=== PATIENT | female | born 1995 | race Asian ===

== ENCOUNTER 2018-07-16 14:00 | Observation (INO) | payer SELFPAY ==
[~2018-07-16] VITALS: Ht 160 cm; Wt 90.7 kg
== END 2018-07-16 16:30 | disposition home or self-care (01) ==
LOC: SPU 14:00 → UNDOADMIN 16:01 → EDSTATUS 16:08
PROVIDERS: ADMIT Obstetrics & Gynecology; ATTEND Obstetrics & Gynecology
DX: O42.919 Preterm premature rupture of membranes, unspecified as to length of time between rupture and onset of labor, unspecified trimester (principal); Z3A.00 Weeks of gestation of pregnancy not specified
CPT/HCPCS: G0378

== ENCOUNTER 2018-07-21 14:40 | Inpatient (IN) | payer SELFPAY ==
[~2018-07-21] VITALS: Ht 160 cm; Wt 92.1 kg
[2018-07-21] MEDS ORDERED: ROPIVACAINE 40 MG/20 ML AMP EP ONE (15:32)
[2018-07-21] MEDS ORDERED: LR 1,000 ML IV ONE (15:39)
[2018-07-21] MEDS ORDERED: DINOPROSTONE 10 MG SUPP VG ONE (15:45)
[2018-07-21] MEDS ORDERED: NALBUPHINE HCL 10 MG/ML AMP IVP PRN (15:45)
[2018-07-21] MEDS ORDERED: TERBUTALINE SULFATE 1 MG/ML VIAL SUBCUT ONE (15:45)
[2018-07-21 15:58] LABS: BASOPHILS % (AUTO) 0.1 % (0.0-2.0); EOSINOPHILS # (AUTO) 0.1 K/uL (0.0-0.4); EOSINOPHILS % (AUTO) 0.7 % (0.0-4.0); HEMATOCRIT 36.4 % (36-48); HEMOGLOBIN 11.8 g/dL (12.0-16.0); LYMPHOCYTES # (AUTO) 2.1 K/uL (1.0-5.5); MEAN CORPUSCULAR HEMOGLOBIN 31 pg (27-31); MEAN CORPUSCULAR HGB CONC 33 % (32-36); MEAN CORPUSCULAR VOLUME 96 fL (79.0-98.0); MONOCYTES # (AUTO) 0.7 K/uL (0.0-1.0); MONOCYTES % (AUTO) 8.3 % (1.7-9.3); NEUTROPHILS # (AUTO) 5.4 K/uL (1.8-7.7); NEUTROPHILS % (AUTO) 65.9 % (40.0-70.0); PLATELET COUNT (AUTO) 166 K/uL (130-430); RED BLOOD CELL COUNT(AUTO) 3.78 MIL/uL (4.2-6.2); RED CELL DISTRIBUTION WIDTH 15.4 % (9.0-15.0); WHITE BLOOD COUNT (AUTO) 8.3 K/uL (4.8-10.8)
[2018-07-21] MEDS: LR 1,000 ML IV SCH ×2 (16:36→22:52)
[2018-07-21 17:20] VITALS: BP_SYST 124
[2018-07-22] MEDS: LR 1,000 ML IV SCH ×2 (06:09→13:00)
[2018-07-22] MEDS ORDERED: OXYTOCIN/0.9 % SODIUM CHLORIDE 1,000 ML IV SCH (07:46)
[2018-07-22] MEDS ORDERED: FENT2mCg/mL-ROPIVA0.2%/NS EPID 150 ML EP SCH (12:09)
[2018-07-22] MEDS ORDERED: ROPIVACAINE 0.2% 100 ML ONE (12:09)
[2018-07-22] MEDS ORDERED: fentaNYL CITRATE/PF 100 MCG/2 ML AMP ONE ×3 (12:09→18:15)
[2018-07-22] MEDS ORDERED: fentaNYL CITRATE/PF 100 MCG/2 ML AMP EP ONE (14:38)
[2018-07-22] MEDS ORDERED: CEFAZOLIN 2 GM IVPB PREMIX 50 ML IV ONE (16:15)
[2018-07-22] MEDS ORDERED: NALOXONE HCL 1 MG in NACL 0.9% 1,000 ML IV PRN ×4 (16:37)
[2018-07-22] MEDS ORDERED: LR 500 ML IV ONE (16:37)
[2018-07-22] MEDS ORDERED: LR 1,000 ML IV SCH ×2 (16:37→18:08)
[2018-07-22] MEDS ORDERED: NALOXONE HCL 0.4 MG/ML AMP (NARCAN) IVP PRN ×3 (16:45)
[2018-07-22] MEDS ORDERED: DIPHENHYDRAMINE HCL 50 MG CAPSULE PO PRN (16:45)
[2018-07-22] MEDS ORDERED: DIPHENHYDRAMINE INJ 50 MG/ML VIAL IVP PRN (16:45)
[2018-07-22] MEDS ORDERED: MEPERIDINE HCL/PF 25 MG/ML DISP.SYRIN IVP PRN ×2 (16:45)
[2018-07-22] MEDS ORDERED: ONDANSETRON HCL 4 MG/2 ML VIAL IVP PRN (16:45)
[2018-07-22] MEDS ORDERED: ePHEDrine sulfate 50 MG/ML VIAL IVP PRN (16:45)
[2018-07-22] MEDS ORDERED: HYDROmorphone 2 MG/ML VIAL IVP PRN ×2 (16:45)
[2018-07-22] MEDS ORDERED: HYDROmorphone 1 MG INJ. 1 MG/ML AMPUL IVP PRN (16:45)
[2018-07-22] MEDS ORDERED: KETOROLAC TROMETHAMINE 60 MG/2 ML VIAL IM PRN (16:45)
[2018-07-22 18:10] VITALS: BP_SYST 131
[2018-07-22] MEDS ORDERED: MEASLES,MUMPS&RUBELLA VACC/PF 12500 UNIT/0.5 ML VIAL SUBQ PRN (18:15)
[2018-07-22] MEDS ORDERED: LIDOCAINE 2%, 20 ML MDV ONE (18:15)
[2018-07-22] MEDS ORDERED: LR 1,000 ML IV.SOLN IV ONE (18:15)
[2018-07-22] MEDS ORDERED: BISACODYL 10 MG/SUPPOSITORY RC PRN (18:15)
[2018-07-22] MEDS ORDERED: LANOLIN 7 GM OINT. TP PRN (18:15)
[2018-07-22] MEDS ORDERED: ONDANSETRON HCL 4 MG/2 ML VIAL ONE (18:15)
[2018-07-22] MEDS ORDERED: ANUSOL 1 EA SUPP.RECT (PREPARATION H) RC PRN (18:15)
[2018-07-22] MEDS ORDERED: MORPHINE SULFATE 10MG/10ML PF AMP ONE (18:15)
[2018-07-22] MEDS ORDERED: OXYTOCIN 10 UNIT/ML VIAL ONE (18:15)
[2018-07-22] MEDS ORDERED: SENNOSIDES/DOCUSATE SODIUM 1 TAB TABLET(SENOKOT-S) PO PRN (18:15)
[2018-07-22] MEDS ORDERED: NS IRRIG SOLN 1000 ML IR ONE (18:15)
[2018-07-22] MEDS ORDERED: SODIUM BICARBONATE 4% (NEUT) 5 ML VIAL ONE (18:15)
[2018-07-22] MEDS ORDERED: RHO(D) IMMUNE GLOBULIN/MALTOSE 1500 UNITS/1.3 ML (WINHRO) IM PRN (18:15)
[2018-07-22] MEDS ORDERED: DIPH-TET-PERTUS Vaccine 0.5 ML VIAL (ADACEL) I.M. PRN (18:15)
[2018-07-22] MEDS ORDERED: OXYTOCIN/0.9 % SODIUM CHLORIDE 20 UNITS/1,000 ML BAG IV ONE (18:15)
[2018-07-22] MEDS ORDERED: MEPERIDINE HCL/PF 25 MG/ML DISP.SYRIN ONE (18:33)
[2018-07-22] MEDS ORDERED: OXYTOCIN/0.9 % SODIUM CHLORIDE 1,000 ML IV ONE (20:15)
[2018-07-23] MEDS: KETOROLAC TROMETHAMINE 30 MG VIAL IVP SCH ×3 (06:00→06:22)
[2018-07-23] MEDS: CEFAZOLIN 1 GM IVPB PREMIX 50 ML IV SCH ×4 (06:00→12:12)
[2018-07-23 07:20] LABS: EOSINOPHILS # (AUTO) 0.1 K/uL (0.0-0.4); EOSINOPHILS % (AUTO) 0.8 % (0.0-4.0); HEMATOCRIT 33.1 % (36-48); HEMOGLOBIN 10.6 g/dL (12.0-16.0); LYMPHOCYTES # (AUTO) 1.5 K/uL (1.0-5.5); LYMPHOCYTES % (AUTO) 13.5 % (20.5-51.5); MEAN CORPUSCULAR HEMOGLOBIN 31 pg (27-31); MEAN CORPUSCULAR HGB CONC 32 % (32-36); MEAN CORPUSCULAR VOLUME 95 fL (79.0-98.0); MONOCYTES # (AUTO) 0.5 K/uL (0.0-1.0); PLATELET COUNT (AUTO) 176 K/uL (130-430); RED BLOOD CELL COUNT(AUTO) 3.49 MIL/uL (4.2-6.2); RED CELL DISTRIBUTION WIDTH 15.5 % (9.0-15.0); WHITE BLOOD COUNT (AUTO) 10.8 K/uL (4.8-10.8)
[2018-07-23] MEDS ORDERED: OXYCODONE/ACETAMINOPHEN 5-325 TABLET PO PRN (08:45)
[2018-07-23 09:56] LABS: NEUTROPHILS # (AUTO) 8.7 K/uL (1.8-7.7)
[2018-07-23 09:58] LABS: NEUTROPHILS % (AUTO) 80.7 % (40.0-70.0)
[2018-07-23] MEDS: SIMETHICONE 80 MG TAB.CHEW PO PRN ×2 (13:12→22:05)
[2018-07-23] MEDS: OXYCODONE/ACETAMINOPHEN 5-325 TABLET PO PRN ×2 (15:15→22:05)
[2018-07-23] MEDS: IBUPROFEN 600 MG TABLET PO SCH (18:35)
[2018-07-23] MEDS: DOCUSATE SODIUM 100 MG CAPSULE PO PRN (21:59)
[2018-07-24] MEDS: SIMETHICONE 80 MG TAB.CHEW PO PRN (06:07)
[2018-07-24] MEDS: IBUPROFEN 600 MG TABLET PO SCH ×2 (06:08→12:00)
[2018-07-24] MEDS: OXYCODONE/ACETAMINOPHEN 5-325 TABLET PO PRN (06:09)
[2018-07-24] MEDS: DOCUSATE SODIUM 100 MG CAPSULE PO PRN (13:20)
== END 2018-07-24 17:18 | disposition home or self-care (01) | DRG 787 ==
LOC: SPU 14:40
PROVIDERS: ADMIT Obstetrics & Gynecology; ATTEND Obstetrics & Gynecology
PROC: 10D00Z1 Extraction of Products of Conception, Low, Open Approach (ICD-10-PCS; principal; 2018-07-22 17:00)
DX: O76 Abnormality in fetal heart rate and rhythm complicating labor and delivery (principal); O41.03X0 Oligohydramnios, third trimester, not applicable or unspecified; O99.214 Obesity complicating childbirth; E66.01 Morbid (severe) obesity due to excess calories; O62.0 Primary inadequate contractions; Z3A.38 38 weeks gestation of pregnancy; Z37.0 Single live birth; Z68.36 Body mass index [BMI] 36.0-36.9, adult
CPT/HCPCS: 36415; 85025; 86886; 86900; 86901; 94760; J0690; J1885; J2001; J2175; J2274; J2310; J2405; J2590; J2795; J3010; J7030; J7120